=== PATIENT | female | born 1970 | race Caucasian/White ===

== ENCOUNTER 2025-09-24 16:58 | Outpatient (CLI) | payer BC, SELFPAY ==
--- NOTE | ~2025-09-24 | XR_ITS ---
EXAMINATION: XR foot RT 2V, 09/24/2025 17:20 TELEVISION SERVICER HISTORY: Arthropathic psoriasis,unspecified COMPARISON: No comparisons available. Findings: No acute fracture or malalignment. No significant degenerative changes. Soft tissues unremarkable. Impression: No acute fracture or malalignment. Reviewed, dictated and finalized at location P. VISION SERVICER Impression: No acute fracture or malalignment.
--- NOTE | ~2025-09-24 | XR_ITS ---
XR lumbar spine min 4V Indication: Arthropathic psoriasis,unspecified Comparison: None Findings: The vertebral heights are intact. No fracture or subluxation. The disc heights are intact. Soft tissues unremarkable Impression: No acute abnormality. Reviewed, dictated and finalized at location P. RIAL MARKER DESIGNER Impression: No acute abnormality.
--- NOTE | ~2025-09-24 | XR_ITS ---
XR sacroiliac joints min 3V 09/24/2025 17:43 Indication: Joint pain. Psoriatic arthropathy. Procedure: 3 views of the sacroiliac joints Comparison: No prior studies for comparison. Findings: Mild symmetric degenerative change of the sacroiliac joints. Sacral foramen are symmetric. Mild osteoarthritis of the hips. Pelvic rings intact. 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 No erosive changes. Reviewed, dictated and finalized at location I. RIDGE ASSEMBLER Impression: 1: Mild symmetric degenerative joint disease of the sacroiliac joints. No erosi ve changes.
--- NOTE | ~2025-09-24 | XR_ITS ---
EXAMINATION: XR foot LT 2V, 09/24/2025 17:20 VICE PRESIDENT NETWORK DEVELOPMENT HISTORY: Arthropathic psoriasis,unspecified COMPARISON: No comparisons available. Findings: No acute fracture or malalignment. Moderate degenerative changes of the first metatarsal phalangeal joint with small erosions. Soft tissues unremarkable. Impression: No acute fracture or malalignment. Reviewed, dictated and finalized at location P. PRESIDENT NETWORK DEVELOPMENT Impression: No acute fracture or malalignment.
--- NOTE | ~2025-09-24 | XR_ITS ---
EXAMINATION: XR hand LT 2V, 09/24/2025 17:20 EXECUTIVE CHAIRMAN HISTORY: Arthropathic psoriasis,unspecified COMPARISON: No comparisons available. Findings: Fixation of the first metacarpal phalangeal joint, no acute fracture Moderate degenerative changes of the first metacarpal carpal joint and the distal first interphalangeal joint, no erosions identified Soft tissues unremarkable. Impression: No acute fracture or malalignment. Reviewed, dictated and finalized at location P. UTIVE CHAIRMAN Impression: No acute fracture or malalignment.
--- NOTE | ~2025-09-24 | XR_ITS ---
EXAMINATION: XR hand RT 2V, 09/24/2025 17:20 DIESEL BUS MECHANIC HISTORY: Arthropathic psoriasis,unspecified COMPARISON: No comparisons available. Findings: No acute fracture or malalignment. No significant degenerative changes. Soft tissues unremarkable. Impression: No acute fracture or malalignment. Reviewed, dictated and finalized at location P. EL BUS MECHANIC Impression: No acute fracture or malalignment.
--- OUTSIDE RECORDS SUMMARY | 2025-09-24 17:17 | XMS_ITS | Continuity of Care Document ---
Author Organization [place] [facility] Address [address] [place] [address] Assessment Encounter Date Assessment Date Assessment LastModified by Organization Details LastModified Time 08/06/2025 08/06/2025 Pt is here for virtual visit. Audio and video was utilized to conduct the visit. Pt was at their home. Provider was in office setting. Visit lasted a total of 12 mins. Not available 08/06/2025 12:57:31 Plan of Treatment Reminders Order Date Submit Date Provider Last Modified By Organization Details Last Modified Time Details Appointments None recorded. Lab None recorded. Referral None recorded. Procedures None recorded. Surgeries None recorded. Imaging None recorded. Medication Orders Zepbound 15 mg/0.5 mL subcutaneou s pen injector [address] [facility] [id number], [place], [address], 12:55:11 Patient TargetsNo targets recorded. Patient Instructions Encounter Date Encounter Id Patient Instructions Last Modified By Organization Details Last Modified Time 08/06/2025 [id number] Patient presente d for medication (Zepbound) refill. Patient tolerating medication well at current dose without adverse effects. Discussed plan with patient, that she started at 2.5 mg SC qwk x4wk, then 5 mg SC qwk, then 7.5mg weekly, then 10mg weekly, then 12.5mg weekly and now will continue on the 15mg dose weekly. Patient understands that the dose will depend on patient and weight loss and her progress, explained she may not need to go above certain doses depending on her results and needs. It is important to have a diet of plant based foods, low saturated fat, and low sodium to help prevent the risk of hypertension, cholesterol issues, and diabetes. Follow up 1 month or sooner if needed. Addressed all questions and concerns. Patient voiced understanding and agreeable to plan of care. Not available 08/06/2025 13:39:58 Reason for Referral None Reported. Problems Name Problem SNOMED Code Status Onset Date Resolution Date Notes Provider Name and Address Organization Details Recorded Time Seasonal allergy 969867459 Active 2022 Janey Muro NP, S [address], [place], [place], [address] [place] [address], [place] [facility] 15:08:42 Acid reflux 007246143 Active 2022 intermit tent Janey Muro NP, S [address], [place], [address] [place] [address], [facility] - [facility] 15:09:13 Prediabe flor 866825351 Active 2022 Janey Muro NP, S [address], [place], [address] [place] [address], [place] [facility] 3 15:32:39 Paresthe panfilo of upper limb 63606215 Completed 202207/11/2024 Janey Muro NP, S [address], [place], [address] [place] [address], [place] [facility] 4 11:40:26 Paresthe panfilo of lower extremit y 074166625 Completed 202207/11/2024 Janey Muro NP, S [address], [place], [address] [place] [address], [place] [facility] 4 11:40:20 Pain of right wrist [id number] 9100 Completed 202207/11/2024 Janey Muro NP, S [address], [place], [place], [address] [place] [address], [place] [facility] 4 11:40:23 Body mass index 30+ - obesity 625606818 Active 2022 Janey Muro NP, S 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 , [place], [place], [address] [place] [address], [place] [facility] 4 11:12:57 Mixed hyperlip idemia 541000279 Active 2023 Janey Muro NP, S [address] , [place], [place], [address] [place] [address], [facility] - [facility] 4 15:36:33 Psoriati c arthriti s 864872636 Active 2023 Janey Muro NP, S [address] , [place] [address], [facility] - [facility] 4 19:37:58 Problem Notes None recorded. Procedures Surgical History Date Name Laterality Status Provider Name and Address Organization Details Recorded Time 023 colonoscopy completed Janey Muro NP, S [address], [address] - [facility] 09/03/2023 15:24:23 cholecystectomy completed Janey Muro NP, S [address] , [address] [place] [facility] 09/03/2023 15:14:08 ligation of fallopia n tube completed Janey Muro NP, S [address] , [address] - [facility] 09/03/2023 15:14:28 ligation of fallopia n tube completed Janey Muro NP, S [address] , [address] [place] - [facility] 09/03/2023 15:14:29 arthroplasty of metacarpophalangeal joint of finger completed Janey Muro NP, S [address], [place], [place], [address] [place] [address], [facility] - [facility] 09/03/2023 15:14:53 arthroscopy of hip completed Janey Muro NP, S [address], [place], [place], [address] [place] [address], [facility] - [facility] 09/03/2023 15:15:07 bursectomy completed Janey Muro NP, S [address], [place], [address] [place] [address], [place] [facility] 09/03/2023 15:16:05 Total Hysterectomy completed Janey Muro NP, S [address], [place], [place], [address] [place] [address], [facility] - [facility] 09/03/2023 15:16:32 Imaging Results None recorded. Procedure Notes None recorded. Medical Equipment None Reported. Allergies Allergen ID Allergen Name Allergen Category Reaction Reaction Severity Criticality Documentation Date Start Date Code Code System Note Provider Name and Address Organization Details Recorded Time 1933 codeine medicatio n abdominal pain Not available Not available 09/03/2023 2670 RxNorm Janey Muro NP, S [address], [place], [address] [place] [address], [facility] - [facility] 15:07:07 Medications Name Sig Start Date Stop Date Status Note LastModified by Organization Details LastModified Time cyclobenz aprine 10 mg tablet TAKE 1 TABLET BY MOUTH EVERY 8 HOURS NEEDED 12/07 completed Not Available Not Available Not Available meloxicam 15 mg tablet TAKE 1 TABLET BY MOUTH DAILY 08/06 completed Not Available Not Available Not Available Zyrtec 10 mg tablet Take 1 tablet every day by oral route. active Not Available Not Available No t Available valacyclo vir 500 mg tablet Take 1 tablet every day by oral route for 30 days. active Not Available Not Available No t Available triamcino lone acetonide 0.1 % topical cream APPLY THIN LAYER TOPICALL Y TO THE AFFECTED AREA TWICE DAILY active Not Available Not Available No t Available rizatript an 10 mg disintegr ating tablet Take 1 tablet as needed by oral route for 7 days, for migraine . active Not Available Not Available No t Available omeprazol e 20 mg capsule,d elayed release Take 1 capsule every day by oral route. 12/07 completed Not Available Not Available Not Available methylpre dnisolone 4 mg tablets in a dose pack FOLLOW PACKAGE DIRECTIO NS 02/25 completed Not Available Not Available Not Available amoxicill in 875 mg-potass ium clavulana te 125 mg tablet TAKE 1 TABLET BY MOUTH TWICE A DAY FOR 10 DAYS active Not Available Not Available No t Available Vitamin D active Not Available Not Radha ilable Not Available Humira Pen 40 mg/0.8 mL subcutane ous kit active Due to insuranc e this changed to a biosimil ar generic Hyrimoz. Not Available Not Available Not Available B12 active liquid Not Available Not Availa ble Not Available Flonase Allergy Relief active Not Available Not Available Not Available Wegovy 0.25 mg/0.5 mL subcutane ous pen injector ADMINIST ER 0.25MG UNDER THE SKIN EVERY WEEK 12/07 completed Not Available Not Available Not Available Paxlovid 300 mg (150 mg x 2)-100 mg tablets in a dose pack Please take as directed on blister pack. 12/26 completed Not Available Not Available Not Available Mounjaro 7.5 mg/0.5 mL subcutane ous pen injector INJECT 7.5 MG UNDER THE SKIN ONE DAY A WEEK 12/07 completed Not Available Not Available Not Available Mounjaro 5 mg/0.5 mL subcutane ous pen injector INJECT 5 MG UNDER THE SKIN ONCE WEEKLY FOR 28 DAYS 12/07 completed Not Available Not Available Not Available Mounjaro 10 mg/0.5 mL subcutane ous pen injector Inject 10 mg every week by subcutan eous route. 11/01 completed pt lost 25 lbs on this medicati on Not Available Not Available Not Available Mounjaro 2.5 mg/0.5 mL subcutane ous pen injector 12/22 completed Not Available Not Available Not Available Zepbound 10 mg/0.5 mL subcutane ous pen injector Inject 10 mg every week by subcutan eous route for 30 days. 12/09 completed Not Available Not Available Not Available Zepbound 5 mg/0.5 mL subcutane ous pen injector ADMINIST ER 5 MG UNDER THE SKIN EVERY WEEK 10/28 completed Not Available Not Available Not Available Zepbound 2.5 mg/0.5 mL subcutane ous pen injector active Not Available Not Available Not Available Zepbound 15 mg/0.5 mL subcutane ous pen injector Inject 15 mg every week by subcutan eous route for 30 days. 2024 active Not Available Not Available Not Avai lable Zepbound 12.5 mg/0.5 mL subcutane ous pen injector ADMINIST ER 12.5 MG UNDER THE SKIN EVERY WEEK 02/25 completed Not Available Not Available Not Available Zepbound 7.5 mg/0.5 mL subcutane ous pen injector Inject 7.5 mg every week by subcutan eous route for 30 days. 10/28 completed 10/28/2024 dose increase d. Not Available Not Available Not Available Vitals Date Recorded Body height Body mass index (BMI) Body weight Provider Name and Address Organization Details Last Updated DateTime 08/06/2025 167.64 cm 32.8 kg/m2 58955.97 g CHLOE REINA, DIRECTOR OF SALES MARKETING- [address], [place], [address], [place] [facility] 08/06/2025 12:45:51 Social History Question Answer Notes LastModified by Organizat ion Details LastModified Time Tobacco Smoking Status Never Smoker Janey Muro, REJI, S [address], [place], [address], [place] [facility] 09/03/2023 15:13:17 Are You Blind Or Do You Have Difficulty Seeing? No Information not available 07/11/2024 What Is Your Level Of Caffeine Consumption? None Information not available 11/02/2023 Are You Deaf Or Do You Have Serious Difficulty Hearing? No Information not available 07/11/2024 Who Is Your Employer? [employer] Information not available 07/11/2024 What Was The Date Of Your Most Recent Tobacco Screening? 08/06/2025 Information not available 08/06/2025 Have You Ever Been Counseled For Unhealthy Alcohol Use? No Information not available 11/02/2023 Do You Have Difficulty Walking Or Climbing Stairs? No Information not available 07/11/2024 Sex: Unknown Functional Status Question Answer Note LastModified by Organizat ion Details LastModified Time How many times per week do you consume alcohol? Less than 1 time per week Information not available 11/02/2023 Do you use any illicit or recreational drugs? No Information not available 09/03/2023 What is your level of alcohol consumption? Occasional Information not available 11/02/2023 Are you currently employed? Yes Information not available 07/11/2024 Do you have difficulty doing errands alone? No Information not available 07/11/2024 Are you able to care for yourself independently? Yes Information not available 07/11/2024 What is your occupation? [employer] Information not available 07/11/2024 Do you have difficulty dressing, bathing, grooming, or toileting? No Information not available 07/11/2024 Mental Status Question Answer Note LastModified by Organization D etails LastModified Time Do you have difficulty concentrating, remembering or making decisions? No Information no t available 07/11/2024 Family History Relationship Description Onset Age of this Age Resolved Age Notes LastModified by Organization Details LastModified Time Father Hypertensive disorder Not available 2022 15:10:28 Father Hypercholest erolemia Not available 2022 15:10:37 Father Atrial fibrillation 80 Not available 11:48:23 Father Malignant neoplasm of lung Not available 2022 15:11:26 Father Malignant neoplasm of skin Not available 2023 10:56:59 Mother Atrial fibrillation 55 Not available 11:48:49 Sister Malignant neoplasm of colon Not available 2022 15:11:33 Sister Epilepsy Not available 09/03/2023 15:11:41 Sister Lupus erythematosu s Not available 2023 10:56:59 Sister Malignant neoplasm of skin Not available 2023 10:56:59 Brother Atrial fibrillation 63 Not available 11:48:55 Medical History No medical history recorded. Gynecological History Statement/Question Response Abnormal Pap Y Date of Last Pap Smear Obstetrics History GPAL:G 0 P 0 0 0 0 Immunizations Vaccine Type Date Status Note Provider Nam e and Address Organization Details Recorded Time Tdap 01/29/2018 completed Janey Muro NP, S [address], [place], [address], [facility] - [facility] 09/03/2023 15:25:41 zoster, unspecified formulation 08/15/2023 completed Louie Muro null, [place] [facility] 11/02/2023 10:56:59 influenza, unspecified formulation 08/15/2023 completed Lou[place] [facility] 11/02/2023 10:56:59 SARS-COV-2 (COVID-19) vaccine, UNSPECIFIED 08/15/2023 completed Janey Muro NP, S [address], [place], [address], [place] [facility] 09/03/2023 15:26:40 zoster recombinant 08/02/2025 completed MADDI AGUILAR [address], [place], [address], [facility] - [facility] 08/06/2025 12:46:05 Past Encounters Encounter ID Performer Location Encounter Start Date Encounter Closed Date Diagnosis/Indication Diagnosis SNOMED-CT Code Diagnosis ICD10 Code Diagnosis IMO Codes Diagnosis Note [id number] MADDI AGUILAR [facility] [address] [place] [address] [place] [address] 07/10/2025 10:41:41 07/10/2025 14:18:19 Body mass index 30+ - obesity 662419400 Z68.38 Patient doing well on Zepbound with continuous weight loss occurring in addition to her behavioral and lifestyle modificati ons. 01/27/2025 increased to next dose in protocol 15mg. Renewal of prescription 418457351 Z76.0 Sickness in family [address] 6404 Z63.79 [id number] 06/11/2025 Brother in law passed suddenly. Diet education 43788439 Z71.3 [id number] AYB AGUILAR [facility] [address] [place] [address] 08/06/2025 09:51:44 08/06/2025 16:10:44 Body mass index 30+ - obesity 408063766 Z68.38 Patient doing well on Zepbound with continuous weight loss occurring in addition to her behavioral and lifestyle modificati ons. 01/27/2025 increased to next dose in protocol 15mg. Mixed hyperlipidemia 267 592324 E78.2 Seasonal allergy 2273319 04 J30.2 [facility] Section Related Observation LastModified by Organization Detai ls LastModified Time None Recorded Concern Status LastModified by Organization Details LastModified Time None Recorded Payers Encounter Date Sequence Insurance Name Policy Number Policy Johnson Covered Member ID Johnson Member ID Guarantor Name 08/06/2025 1 [facility] [id number] Leonor Gomes [id number] Leonor Gomes Notes Date Note Type Note Provider Name and Address Organization Details Recorded Time 08/06/2025 text/html ROS as noted in the HPI Patient in office for mediation follow up. Patient reports recent life stressors have started to improve even more since last visit and has been getting back to a routine, things are going better and she can eat healthier, is still seeing a industrial relations commissioner, and has continued with aqua kathie class, yoga, and daily walks. For the first time has noticed a little constipation, but no other concerns or reasons she would want to stop the medication at this time. MADDI AGUILAR [address], [place], [address], [place] [facility] 08/06/2025 13:41:16 OBGyn Episode No OBEpisode recorded.
--- OUTSIDE RECORDS SUMMARY | 2025-09-24 17:17 | XMS_ITS | Continuity of Care Document ---
Author Organization [place] [facility] Address [address] [place] [address] Assessment Encounter Date Assessment Date Assessment LastModified by Organization Details LastModified Time 07/10/2025 07/10/2025 Patient presented for medication refill. Patient tolerating medication well at current dose without adverse effects. Refilled as below. Discussed plan with patient, who expressed understanding . Follow up as noted below. Pt is here for virtual visit. Audio and video was utilized to conduct the visit. Pt was at their home. Provider was in office setting. Visit lasted a total of 7 mins. Not available 07/10/2025 11:12:58 Plan of Treatment Reminders Order Date Submit Date Provider Last Modified By Organization Details Last Modified Time Details Appointments None recorded. Lab None recorded. Referral None recorded. Procedures None recorded. Surgeries None recorded. Imaging None recorded. Medication Orders Zepbound 15 mg/0.5 mL subcutaneou s pen injector 2024 025 [facility] [address], [place], [address], 11:02:55 Patient TargetsNo targets recorded. Patient Instructions Encounter Date Encounter Id Patient Instructions Last Modified By Organization Details Last Modified Time 07/10/2025 [id number] Patient presente d for medication (Zepbound) refill. [...] agreeable to plan of care. Not available 07/10/2025 11:06:37 Reason for Referral None Reported. Problems Name Problem SNOMED Code Status Onset Date Resolution Date Notes Provider Name and Address Organization Details Recorded Time Seasonal allergy 108960820 Active 2022 Janey Muro NP, S [address] , [place], [place], [address] [place] [address], [facility] - [facility] 3 15:08:42 Acid reflux 178165497 Active 2022 intermit tent Janey Muro NP, S [address] , [place], [place], [address] [place] [address], [facility] - [facility] 3 15:09:13 Prediabe flor 173079212 Active 2022 Janey Muro NP, S [address] , [place], [place], [address] [place] [address] - [facility] 3 15:32:39 Paresthe panfilo of upper limb 58269769 Completed 202207/11/2024 Janey Muro NP, S [address] , [place], [place], [address] [place] [address], [facility] - [facility] 4 11:40:26 Paresthe panfilo of lower extremit y 394904831 Completed 202207/11/2024 Janey Muro NP, S [address] , [place], [place], [address] [place] [address], [facility] - [facility] 4 11:40:20 Pain of right wrist 03371789210 9100 Completed 202207/11/2024 Janey Muro NP, S [address], [place], [place], [address] [place] [address], [place] [facility] 4 11:40:23 Body mass index 30+ - obesity 145046736 Active 2022 Janey Muro NP, S 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 , [place], [place], [address] [place] [address], [facility] - [facility] 4 11:12:57 Mixed hyperlip idemia 761608564 Active 2023 Janey Muro NP, S [address] , [place], [place], [address] [place] [address], [facility] - [facility] 4 15:36:33 Psoriati c arthriti s 823042590 Active 2023 Janey Muro NP, S [address], [place], [place], [address] [place] [address], [facility] - [facility] 4 19:37:58 Problem Notes None recorded. Procedures Surgical History Date Name Laterality Status Provider Name and Address Organization Details Recorded Time 023 colonoscopy completed Janey Muro NP, S [address], [place], [place], [address] [place] [address], [place] [facility] 09/03/2023 15:24:23 cholecystectomy completed Janey Muro NP, S [address] , [place], [place], [address] [place] [address], [place] [facility] 09/03/2023 15:14:08 ligation of fallopia n tube completed Janey Muro NP, S [address], [place], [place], [address] [place] [address], [facility] - [facility] 09/03/2023 15:14:28 ligation of fallopia n tube completed Janey Muro NP, S [address], [place], [place], [address] [place] [address], [facility] - [facility] 09/03/2023 15:14:29 arthroplasty of metacarpophalangeal joint of finger completed Janey Muro NP, S [address], [place], [place], [address] [place] [address], [place] [facility] 09/03/2023 15:14:53 arthroscopy of hip completed Janey Muro NP, S [address], [place], [place], [address] [place] [address], [facility] - [facility] 09/03/2023 15:15:07 bursectomy completed Janey Muro NP, S [address], [place], [place], [address] [place] [address], [facility] - [facility] 09/03/2023 15:16:05 Total Hysterectomy completed Janey Muro NP, S [address], [place], [place], [address] [place] [address] - [facility] 09/03/2023 15:16:32 Imaging [...] Muro NP, S [address], [place], [place], [address] [place] [address], [facility] - [facility] 15:07:07 Medications Name [...] and Address Organization Details Last Updated DateTime 07/10/2025 167.64 cm 33.2 kg/m2 87203.31 g CHLOE REINA, [employer]- [address], [place], [address], [place] [facility] 07/10/2025 10:59:52 Social History Question Answer Notes LastModified by Organizat ion Details LastModified Time Tobacco Smoking Status Never Smoker Janey Muro, BLOOD BANK COORDINATOR, S [address], [place], [address], [facility] - [facility] 09/03/2023 15:13:17 Are [...] Muro NP, S [address], [place], [address], [place] [facility] 09/03/2023 15:25:41 zoster, unspecified formulation 08/15/2023 completed [place] [facility] 11/02/2023 10:56:59 influenza, unspecified formulation 08/15/2023 completed [place] [facility] 11/02/2023 10:56:59 SARS-COV-2 (COVID-19) vaccine, UNSPECIFIED 08/15/2023 completed Janey Muro NP, S [address], [place], [address], [place] [facility] 09/03/2023 15:26:40 zoster recombinant 08/02/2025 completed MADDI AGUILAR [address], [place], [address], [place] [facility] 08/06/2025 12:46:05 Past Encounters Encounter ID Performer Location Encounter Start Date Encounter Closed Date Diagnosis/Indication Diagnosis SNOMED-CT Code Diagnosis ICD10 Code Diagnosis IMO Codes Diagnosis Note [id number] MADDI AGUILAR [facility] [address] 0 06/11/2025 09:24:59 06/15/2025 13:39:14 Renewal of prescription 522995035 Z76.0 Body mass index 30+ - obesity 334229700 Z68.38 Patient doing well on Zepbound with continuous weight loss occurring in addition to her behavioral and lifestyle modificati ons. 01/27/2025 increased to next dose in protocol 15mg. Sickness in family 62702 8009 Z63.79 [id number] 06/11/2025 Brother in law passed suddenly. Stress-rel ated problem 270238212 Z63.79 [id number] 06/11/2025 Brother in law passed suddenly. Clearing t hroat - hawking 955461219 R09.89 [id number] Persisting since 11/2024 since she had COVID. [id number] CHLOE REINA, [facility] [address] [place] [address] 07/10/2025 10:41:41 07/10/2025 14:18:19 Body mass index 30+ - obesity 322065112 Z68.38 Patient doing well on Zepbound with continuous weight loss occurring in addition to her behavioral and lifestyle modificati ons. 01/27/2025 increased to next dose in protocol 15mg. Renewal of prescription 553037011 Z76.0 Sickness in family [address] 8009 Z63.79 [id number] 06/11/2025 Brother in law passed suddenly. Diet education 15832220 Z71.3 [id number] Health Concerns Section Related Observation LastModified by Organization Cedric ls LastModified Time None Recorded Concern Status LastModified by Organization Details LastModified Time None Recorded Payers Encounter Date Sequence Insurance Name Policy Number Policy Johnson Covered Member ID Johnson Member ID Guarantor Name 07/10/2025 1 [facility] [id number] Leonor Gomes [id number] Leonor Gomes Notes Date Note Type Note Provider Name and Address Organization Details Recorded Time 07/10/2025 text/html ROS as noted in the HPI Patient in office for mediation follow up. Patient recent life stressor have started to improve and has been getting back to a routine, things are going better and she can eat healthier, seeing a new manager life now, and started an aqua kathie class, yoga, and daily walks. Also examined going vegetarian, and reducing animal meats, but was given some changes to make sure she is getting adequate protein. Would like to continue on her Zepbound.Due to insurance changes she was switched from Humira pen to a biosimilar generic Hyrimoz which has caused more side effects. No new changes at this time. CHLOE REINA, [facility]- [address], [place], [address], [facility] - [facility] 07/10/2025 11:13:16 OBGyn Episode No OBEpisode recorded.
--- OUTSIDE RECORDS SUMMARY | 2025-09-24 17:17 | XMS_ITS | Continuity of Care Document ---
Author Organization [place] [facility] Address [address] [place] [address] Assessment Encounter Date Assessment Date Assessment LastModified by Organization Details LastModified Time 08/28/2025 08/28/2025 Patient presented for medication refill. Patient tolerating medication well at current dose without adverse effects. Refilled as below. Discussed plan with patient, who expressed understanding . Follow up as noted below. Pt is here for virtual visit. Audio and video was utilized to conduct the visit. Pt was at their home. Provider was in office setting. Visit lasted 20 mins Not available 08/28/2025 13:13:43 Plan of Treatment Reminders Order Date Submit Date Provider Last Modified By Organization Details Last Modified Time Details Appointments None recorded. Lab None recorded. Referral None recorded. Procedures None recorded. Surgeries None recorded. Imaging None recorded. Medication Orders Zepbound 15 mg/0.5 mL subcutaneou s pen injector 2024 025 [facility] [address], [place], [address], 12:42:11 Patient TargetsNo targets recorded. Patient Instructions Encounter Date Encounter Id Patient Instructions Last Modified By Organization Details Last Modified Time 08/28/2025 [id number] Pt here for medication refill/med check. No side effects at this time. All other health concerns addressed. Not available 08/28/2025 12:44:53 Reason for Referral None Reported. Problems Name Problem SNOMED Code Status Onset Date Resolution Date Notes Provider Name and Address Organization Details Recorded Time Seasonal allergy 764709275 Active 2022 Janey Muro NP, S [address], [place], [place], [address] [place] [address], [place] [facility] 3 15:08:42 Acid reflux 163735787 Active 2022 intermit tent Janey Muro NP, S [address], [place], [place], [address] [place] [address], [place] [facility] 3 15:09:13 Prediabe flor 139609734 Active 2022 Janey Muro NP, S [address], [place], [place], [address] [place] [address], [place] [facility] 3 15:32:39 Paresthe panfilo of upper limb 26185334 Completed 202207/11/2024 Janey Muro NP, S [address], [place], [place], [address] [place] [address], [place] [facility] 4 11:40:26 Paresthe panfilo of lower extremit y 609799133 Completed 202207/11/2024 Janey Muro NP, S [address], [place], [place], [address] [place] [address], [place] [facility] 4 11:40:20 Pain of right wrist 77252251033 9100 Completed 202207/11/2024 Janey Muro NP, S [address], [place], [place], [address] [place] [address], [place] [facility] 4 11:40:23 Body mass index 30+ - obesity 594702928 Active 2022 Janey Muro NP, S 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, [place], [place], [address] [place] [address] - [facility] 4 11:12:57 Mixed hyperlip idemia 923726698 Active 2023 Janey Muro NP, [address] , [address] - [facility] 4 15:36:33 Psoriati c arthriti s 487510719 Active 2023 Janey Muro NP, [address] , [place], [place], [address] [place] [address], [facility] - [facility] 4 19:37:58 Problem Notes None recorded. Procedures Surgical History Date Name Laterality Status Provider Name and Address Organization Details Recorded Time 023 colonoscopy completed Janey Muro NP, S [address] , [address] - [facility] 09/03/2023 15:24:23 cholecystectomy completed Janey Muro NP, [address] , [address] - [facility] 09/03/2023 15:14:08 ligation of fallopia n tube completed Janey Muro NP, S [address] , [address] - [facility] 09/03/2023 15:14:28 ligation of fallopia n tube completed Janey Muro NP, S [address] , [address] - [facility] 09/03/2023 15:14:29 arthroplasty of metacarpophalangeal joint of finger completed Janey Muro NP, S [address] , [address] - [facility] 09/03/2023 15:14:53 arthroscopy of hip completed Janey Muro NP, S [address] , [address] - [facility] 09/03/2023 15:15:07 bursectomy completed Janey Muro NP, S [address], [place], [address], [place] [facility] 09/03/2023 15:16:05 Total Hysterectomy completed Janey Muro NP, S [address], [place], [address], [place] [facility] 09/03/2023 15:16:32 Imaging [...] Muro NP, S [address], [place], [address], [place] [facility] 15:07:07 Medications Name [...] by subcutan eous route for 30 days. 11/08/ 2025 active Not Available Not Available Not Avai [...] and Address Organization Details Last Updated DateTime 08/28/2025 167.64 cm 32.4 kg/m2 41596.35 g Janey Muro NP, S [address], [place], [address], [place] [facility] 08/28/2025 12:34:05 Social History Question Answer Notes LastModified by [employer] Details LastModified Time Tobacco Smoking Status Never Smoker Janey Muro NP, S [address], [place], [address], [facility] - [facility] 09/03/2023 15:13:17 [...] Functional Status Question Answer Note LastModified by Loopbackat ion Details LastModified Time How many times [...] Immunizations Vaccine Type Date Status Note Provider Georges e and Address Organization Details Recorded Time Tdap 01/29/2018 completed Janey Muro NP, S [address], [place], [address], [place] [facility] 09/03/2023 15:25:41 zoster, unspecified formulation 08/15/2023 completed Louie [place]uro [place] [facility] 11/02/2023 10:56:59 influenza, unspecified formulation 08/15/2023 completed [place] [facility] 11/02/2023 10:56:59 SARS-COV-2 (COVID-19) vaccine, UNSPECIFIED 08/15/2023 completed Janey Muro NP, S [address], [place], [address], [place] [facility] 09/03/2023 15:26:40 zoster recombinant 08/02/2025 completed MADDI AGUILAR [address], [place], [address], [facility] - [facility] 08/06/2025 12:46:05 Past Encounters Encounter ID Performer Location Encounter Start Date Encounter Closed Date Diagnosis/Indication Diagnosis SNOMED-CT Code Diagnosis ICD10 Code Diagnosis IMO Codes Diagnosis Note [id number] MADDI AGUILAR [facility] [address] [place] [address] 08/06/2025 09:51:44 08/06/2025 16:10:44 Body mass index 30+ - obesity 720690350 Z68.38 Patient doing well on Zepbound with continuous weight loss occurring in addition to her behavioral and lifestyle modificati ons. 01/27/2025 increased to next dose in protocol 15mg. Mixed hyperlipidemia 267 073684 E78.2 Seasonal allergy 0419534 04 J30.2 Existing and on Zyrte [id number] Janey Muro NP, S [facility] [address] [place] [address] 08/28/2025 09:49:30 08/29/2025 13:41:11 Renewal of prescription 019214810 Z76.0 Body mass index 30+ - obesity 104983941 Z68.38 Mixed hyperlipidemia [address] Prediabetes 423476601 R7 3.03 Psoriatic arthritis 1563 37101 L40.50 stopped infusions, now on humira Progressiv e avascular necrosis of lunate 538746069 M87.039 Health Concerns Section Related Observation LastModified by Organization Detai ls LastModified Time None Recorded Concern Status LastModified by Organization Details LastModified Time None Recorded Payers Encounter Date Sequence Insurance Name Policy Number Policy Johnson Covered Member ID Johnson Member ID Guarantor Name 08/28/2025 1 [facility] [id number] Leonor Gomes [id number] Leonor Gomes Notes Date Note Type Note Provider Name and Address Organization Details Recorded Time 08/28/2025 text/html ROS as noted in the HPI Patient in office for mediation follow up. Pt reports that her weight loss has stagnated. She reports she eats one main meal per day. She will eat small meals for breakfast and lunch Janey Muro, REJI, [address] [place] [address], [address], [place] [facility] 08/28/2025 13:14:24 OBGyn Episode No OBEpisode recorded.
[2025-09-24 18:21] LABS: Hematocrit 43.9 % (37.0-47.0); Hemoglobin 15.2 g/dL (12.0-15.0); Immature Granulocyte Percent A 0.1 % (0-0.5); Lymphocytes Absolute Auto 3.26 K/mm3 (0.9-3.2); Mean Corpuscular HGB Conc 34.6 g/dl (32-36); Mean Corpuscular Hemoglobin 29.4 pg (26-34); Mean Corpuscular Volume 84.9 fl (80-100); Nucleated Red Blood Cells Absolute Auto 0.000 K/mm3 (0.0-0.012); Nucleated Red Blood Cells Perc 0.0 % (0.0-0.2); Platelet Count Result 272 k/mm3 (150-375); Red Blood Count 5.17 M/mm3 (4.2-5.4); White Blood Count 6.9 K/mm3 (4.5-10.0)
[2025-09-24 18:38] LABS: Add Urine Microscopic? YES; Appearance Urine Cloudy (Clear); Glucose Urine UA Negative (Negative); Leukocyte Esterase Ur 3+ LEU/UL (Negative); Nitrate Urine Negative (Negative); Non Pathogenic Casts 0-2; Specific Grav Ur 1.026 (1.001-1.035)
[2025-09-24 19:06] LABS: Hepatitis B Surface Antigen Negative (Negative)
[2025-09-24 19:12] LABS: HAV RESULT Negative (Negative); Hepatitis B Core IgM Result Negative (Negative)
[2025-09-24 19:24] LABS: Hepatitis B Surface Anti Res Negative
[2025-09-24 21:09] LABS: Alanine Aminotransferase 28 U/L (6-35); Albumin Level 4.4 g/dL (3.5-5.1); Alkaline Phosphatase 62 U/L (38-126); Anion Gap 8 mmol/L (4-12); Aspartate Amino Transferase 29 U/L (14-36); Bilirubin,Total 0.7 mg/dL (0.2-1.3); Blood Urea Nitrogen 18 mg/dL (7-17); CRP < 0.5 mg/dL (<1.0); Calcium 9.2 mg/dL (8.4-10.2); Carbon Dioxide 23 mmol/L (22-30); Chloride 106 mmol/L (98-107); Estimated Glomerular Filt Rate > 60; Glucose 71 mg/dL (65-110); Potassium 3.8 mmol/L (3.4-5.0); Sodium 137 mmol/L (137-145); Total Protein 7.4 g/dL (6.3-8.2); Uric Acid 5.2 mg/dL (2.5-7.5)
[2025-09-24 21:37] LABS: Thyroid Stimulating Hormone 5.040 uIU/mL (0.465-4.680)
[2025-09-25 12:08] LABS: Anti-CCP Ab, IgG/IgA 8 units (0-19)
[2025-09-28 08:09] LABS: ANA by IFA Rfx Titer/Pattern Positive (.)
== END 2025-09-24 16:59 | disposition home or self-care (01) ==
LOC: ANHIMG 17:15
PROVIDERS: Visit Provider Internal Medicine
DX: L40.50 Arthropathic psoriasis, unspecified (principal)
CPT/HCPCS: 36415; 72110; 72202; 73120; 73620; 80053; 80074; 81001; 84443; 84550; 85025; 85652; 86038; 86140; 86200; 86431; 86480; 86706